=== PATIENT | male | born 1940 | race Caucasian/White ===

== ENCOUNTER 2016-03-29 10:20 | Outpatient (CLI) | payer MEDICARE, OTHER | END 2016-03-29 10:21 | disposition home or self-care (01) | DX: G47.33 Obstructive sleep apnea (adult) (pediatric) (principal) | CPT/HCPCS: 99214; G0463 ==

== ENCOUNTER 2016-06-13 11:47 | Outpatient (CLI) | payer MEDICARE, OTHER | END 2016-06-13 11:48 | disposition home or self-care (01) | DX: Z79.899 Other long term (current) drug therapy (principal); R23.3 Spontaneous ecchymoses ==

== ENCOUNTER 2016-06-25 09:23 | Outpatient (CLI) | payer MEDICARE, OTHER | END 2016-06-25 09:24 | disposition home or self-care (01) | DX: G47.33 Obstructive sleep apnea (adult) (pediatric) (principal) | CPT/HCPCS: 99213; G0463 ==

== ENCOUNTER 2016-09-28 10:20 | Outpatient (CLI) | payer MEDICARE, OTHER | END 2016-09-28 10:21 | disposition home or self-care (01) | LOC: LAB.R 10:20 | PROVIDERS: ATTEND Physician Assistant Medical | DX: T14.90 Injury, unspecified (principal) | CPT/HCPCS: 87070; 87205 ==

== ENCOUNTER 2016-11-15 14:30 | Outpatient (CLI) | payer MEDICARE, OTHER ==
[2016-11-15 19:02] LABS: BASOPHILS # (AUTO) 0.1 10^3/uL (0.0-0.1); BASOPHILS % (AUTO) 0.9 %; EOSINOPHILS # (AUTO) 0.2 10^3/uL (0.0-0.7); EOSINOPHILS % (AUTO) 2.4 %; HCT - HEMATOCRIT 42.6 % (42.0-52.0); HGB - HEMOGLOBIN 14.3 g/dL (14.0-18.0); LYMPHOCYTES # (AUTO) 2.2 10^3/uL (1.5-3.5); LYMPHOCYTES % (AUTO) 27.8 %; MEAN CORPUSCULAR HEMOGLOBIN 32.9 pg (27.0-31.0); MEAN CORPUSCULAR HGB CONC 33.5 g/dL (32.0-36.0); MEAN CORPUSCULAR VOLUME 98.2 fL (80.0-94.0); MEAN PLATELET VOLUME 8.4 fL (7.4-11.4); MONOCYTES # (AUTO) 0.7 10^3/uL (0.0-1.0); MONOCYTES % (AUTO) 8.6 %; NEUTROPHILS # (AUTO) 4.7 10^3/uL (1.5-6.6); NEUTROPHILS % (AUTO) 60.3 %; RED BLOOD COUNT 4.34 10^6/uL (4.70-6.10); RED CELL DISTRIBUTION WIDTH 14.6 % (12.0-15.0); UNCORRECTED WHITE BLOOD COUNT 7.9 x10^3/uL; WHITE BLOOD COUNT 7.9 x10^3/uL (4.8-10.8)
[2016-11-15 19:26] LABS: ALBUMIN/GLOBULIN RATIO 1.3 (1.0-2.2); BILIRUBIN,TOTAL 0.5 mg/dL (0.2-1.0); CALCIUM 9.1 mg/dL (8.5-10.3); CREATININE 1.1 mg/dL (0.6-1.2); POTASSIUM 4.7 mmol/L (3.5-5.0); TOTAL PROTEIN 7.1 g/dL (6.7-8.2)
== END 2016-11-15 14:31 | disposition home or self-care (01) ==
LOC: LAB.WCP 14:30
PROVIDERS: ATTEND Physician Assistant Medical
DX: D64.9 Anemia, unspecified (principal); Z51.81 Encounter for therapeutic drug level monitoring; Z79.899 Other long term (current) drug therapy
CPT/HCPCS: 36415; 80053; 82728; 85025

== ENCOUNTER 2017-01-23 09:30 | Outpatient (CLI) | payer MEDICARE, OTHER ==
[2017-01-23] MEDS ORDERED: ALBUTEROL NEB 2.5 MG/3 ML INH ONE (10:00)
== END 2017-01-23 23:59 | disposition home or self-care (01) ==
LOC: RT 09:30
PROVIDERS: ATTEND Physician Assistant Medical
DX: J44.9 Chronic obstructive pulmonary disease, unspecified (principal); J96.10 Chronic respiratory failure, unspecified whether with hypoxia or hypercapnia
CPT/HCPCS: 94060; J7613

== ENCOUNTER 2017-01-25 12:55 | Outpatient (CLI) | payer MEDICARE, OTHER ==
--- NOTE | 2017-01-25 17:44 | CONSULTATION NOTE ---
Palliative Care Consultation - Referral Referring Provider: Rafia Hartman PA-C Time of Visit: 13:00 [place] [facility] [place] Sources Records reviewed: Previous records reviewed History/Review of Systems obtained from: Patient, Family, Friend Exam limitations: Clinical condition (Patient has marked short-term memory issues and difficulties understanding.) - History of Present Illness Brief History of Present Illness: Thank you, Rafia Hartman PA-C, for asking the palliative care consult service to be involved in the care of your patient. I am asked to provide support regarding symptom management, advanced care planning and monitoring for appropriate transition to hospice. This is a 76 year old man with advanced COPD and increasing SOB with exertion. 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 A CT chest 01/23/17 showed emphysema, but no suspicious pulmonary nodule or mass lesion. Renal cysts were incidentally noted. He does not have a history of hospitalization His functionality has declined over the past year, along with weight loss, and his weight is now stabilized around 162 lbs. His O2 dosage is up to 3L/hr, FEV1 is 22% of predicted, and O2 sats today are 84% on O2 3L, but he denies discomfort, SOB at rest, lightheadedness, orthopnea. I would have to question if my oximeter was accurate, because he was quite comfortable, with no signs of distress. He reports SOB only walking on inclines, but Shayy, who lives with him in a semi-caregiving capacity, and his daughter dispute this. Both of them express frustration that he does not use his oxygen 24/7 as recommended by his PCP, nor does he take the prescribed nebulizer treatment TID. He retorts that he feels fine without the oxygen, and as for the nebulizer, it does not "do anything," it doesn't make him feel any different. He does use albuterol quite regularly, they report he is using 6 per month and actually members of the family are giving him their inhalers because his prescriptions don't cover what he is using. I suspect one reason for his lack of enthusiasm for the nebulizer is having to set it up and then it's time-consuming, vs. two quick puffs of the inhaler. His daughter and Shayy were also concerned that he spends most of his time sitting and watching television. We discussed that his body has been able to compensate pretty well, but considering the lack of perfusion, it's not surprising he is mostly immobile. He is able to do some light housework, such as washing dishes. Lor's concern is he's not getting enough exercise, so we discussed activities he could tolerate and would enjoy doing. He does miss working with his rocks, particularly grinding stones. However, he is still able to do some work with rocks that are already polished, mixing them with wire and creating items his other daughter is able to sell. He and Lor have gone fishing together, and we discussed ways they can continue to enjoy these sorts of activities. He does continue to smoke, which is another stressful issue for his daughter Lor. He has been on Trilogy respiratory therapy, and a study showed he had compliance of the CPAP in Mar-Apr 2016, but it is unclear whether he is still in compliance. He states he does not like it because the water used in the system is too warm. He was in the [employer] for 20 years and also worked in [employer] for 4-5 years. 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 He has been since 2014, and his was on Hospice at end of life, so the family is familiar with it. Medical/Surgical History - Past Medical History Cardiovascular: reports: Hypertension, Atrial fibrillation, Other (R popliteal artery aneurysm. 4x4cm transverse infrarenal aneurysm.) Respiratory: reports: COPD (advanced/end-stage), Sleep apnea (mild (AHI 5.5)), CPAP use, Other (Uses Trilogy respiratory therapy, recommended that it be managed by his continuum of care manager rather than [facility].) Neuro: reports: Other (Short-term memory issues, and cognitive deficit ( deficiency of understanding, illiteracy)) - Substance History Use: Uses substance without health or social issues: Tobacco (Smoked as a teen, quit in 60s (1-2 ppd), quit smoking in 2002, restarted in 2014 and is a current smoker.) Social History - Living Situation Living arrangement: At home Living Situation: With friend(s) (Shayy, former partner of his daughter Lor Hope.) Support System: His daughter, Lor Hope, lives close by. The patient lives at his own place, and has a family friend, Shayy (she is Lor's former partner), who acts as a semi -caregiver. He has another daughter in [place] and a son in [place], [place]. He was in 2015. Medications/Allergies - Medications Home Medications: Ambulatory Orders Medication Instructions Recorded Confirmed Albuterol Sulfate [Proair Hfa 2 puffs INH Q4H PRN 01/25/17 01/25/17 Inhaler] Aspirin [Adult Low Dose Aspirin EC] 81 mg PO 01/25/17 Atorvastatin [Lipitor] 10 mg PO DAILY 01/25/17 01/25/17 Diltiazem HCl [Diltiazem ER] 180 mg PO DAILY 01/25/17 01/25/17 Fluticasone/Salmeterol [Advair 1 inh INH BID 01/25/17 01/25/17 500-50 Diskus] Ipratropium/Albuterol [Combivent 1 puffs INH QID PRN MDD 6 puffs 01/25/17 Respimat] Ipratropium/Albuterol [Duoneb] 3 ml NEB TID 01/25/17 01/25/17 Lisinopril 20 mg PO DAILY 01/25/17 01/25/17 Magnesium Oxide [Magnesium] 500 mg PO DAILY 01/25/17 01/25/17 Multivitamin [Multiple Vitamins] 1 tab PO DAILY 01/25/17 01/25/17 Prednisone [Leonard] 2 mg PO 01/25/17 Review of Systems - Constitutional Constitutional: reports: Weight loss (Family reports previous weight loss but stabilized now around 162 lbs.) - Cardiovascular Cardiovascular: reports: Exertional dyspnea. denies: Chest pain, Lightheadedness, Syncope, Orthopnea - Respiratory Respiratory: reports: SOB with exertion. denies: SOB at rest, Pleuritic pain - Gastrointestinal Gastrointestinal: denies: Constipation, Diarrhea, Nausea, Vomiting - Genitourinary Genitourinary: denies: Dysuria, Frequency, Urgency, Incontinence - Musculoskeletal Musculoskeletal: denies: Muscle pain, Back pain - Neurological Neurological: reports: Memory problems - Psychiatric Psychiatric: denies: Depression, Anxiety Physical Exam - Vital Signs Temperature: 98.4 F Pulse Rate: 61 O2 Saturation: 84 Blood Pressure: 120/68 - Physical Exam General Appearance: positive: No acute distress Eyes Bilateral: positive: EOMI, No lid inflammation, Conjunctivae nml, No scleral icterus ENT: positive: No signs of dehydration Neck: positive: Thyroid nml, No JVD, Trachea midline Cardiovascular: positive: Regular rate & rhythm, No murmur Respiratory: positive: Chest non-tender, No respiratory distress (on 3L O2), Diminished throughout, Wheezes (inspiratory) Skin: negative: No symptoms, Cyanosis Extremities: positive: No pedal edema Neurologic/Psychiatric: positive: Oriented x3, Mood/affect nml Palliative Care - POLST Patient has POLST: Yes POLST Status: DNR, Limited Interventions Pain: No pain Tiredness/Fatigue: None Drowsiness/Sedation: None Nausea: None Depression: None Anxiety: None Dyspnea: Mild (1-3) Anorexia: Mild (1-3) Sleep: Sleeps well Constipation: No Feelings of wellbeing/Perceived Quality of Life: Good Performance Status: Current level of functioning: Able to perform own ADLs, feeds himself, can help with small guest relations officer like dishes. Does not shower very often, but this is a longstanding trait. Ambulatory without walker, and does take off O2 while in the house. May not be compliant with the Trilogy respirator. Is not compliant with albuterol nebulizer, prefers instead to use the inhaler, likely because it is easier and quicker. Palliative Care Performance Status: 50% - Palliative Care Discussion: Who is present: Patient, daughter Lor, friend/rn care transition Shayy, and myself Surrogate decision maker: Daughter/DPMYLENE Hope, mobile [phone]. Shayy, friend who lives with patient, mobile [phone]. Patient/Family understanding of the illness: Patient has a cognitive deficit, apart from his difficulties with short-term memory, which is preventing him from a thorough understanding of his disease. He does insist that he doesn't feel short of breath, and often removes his oxygen cannula. It appears he can handle the lack of extra oxygen while immobile, and even with light activity, such as washing dishes -- at least for a certain amount of time. We discussed keeping his O2 close by so he can access it as needed. I encouraged Lor to learn to accept things she can't change and work with what she can change. If he is not using his oxygen continuously, it's probably because he can tolerate doing so. It will be worthwhile to visit this again at the next visit. Since the patient denies discomfort and dyspnea, or feelings of air hunger, I have not suggested morphine at this time. This should also be revisited at the next meeting. Most important goals: [place] is important to him, and he is missing working with rocks like he used to do. He is no longer driving, and this appears not to be an issue for him, since Shayy is able to drive him. She is working on getting paratransit for him. Right now he's only qualified if the temperature is less than 40 degrees. Patient/family concerns: For his daughter, she has been stressed over his lack of compliance on wearing O2, not using his nebulizer as prescribed, smoking, and sitting around without moving/exercising more. We discussed ways to lessen the daughter's stress around his not always complying with the doctor's orders, and how to increase the activities that he does enjoy and can tolerate. Impression and Recommendations - Palliative Care Impression: This is a 76 year old man with a complex medical history including advanced COPD and increasing SOB upon exertion, along with short-term memory issues and cognitive deficits. He is not compliant on some of his respiratory medications and procedures, nor in the use of oxygen, which is stressful for his daughter., but not for the patient. He and the family could benefit from palliative care followup, with monitoring for increased respiratory symptoms and management of those symptoms, and eventual transition to Hospice when appropriate. Recommendations/Counseling Done: SOB from chronic COPD: Increasing SOB with exertion, but comfortable at rest. Adherence of oxygen use and the nebulizer is an issue for the daughter, but not for the patient. He does overuse albuterol inhaler, and is not using albuterol- ipratropum nebulizer regularly. Continue Advair diskus BID, and prednisone daily. He denies discomfort and dyspnea. Review and next visit, and monitor for increased dyspnea and eventual appropriateness of morphine. Encouraged to quit tobacco. Revisit at each appointment. Advance Care Planning: POLST was filled out and signed earlier in November, DNR and limited interventions. Patient's concern is to maintain his independence as much as possible. An example for him would be to be able to work with his rocks again. His daughter is agreeable to working together on increasing these pleasure activities for him. He does not quite fit the criteria for Hospice currently; he is not actively losing weight, he does not experience SOB or dyspnea at rest. We will monitor his status and transition to Hospice when approriate. Call next week to check if another visit is wanted, and follow up monthly and as needed. Time Spent: 65 minutes with greater than 50% of this done in counseling and coordination of care regarding advanced COPD, advanced care planning, and symptom burden, weighing benefits and burdens of different interventions. Provided anticipatory guidance about disease progress and advanced care planning.
== END 2017-01-25 12:56 | disposition home or self-care (01) ==
LOC: PC 12:55
PROVIDERS: ATTEND Nurse Practitioner
DX: Z51.5 Encounter for palliative care (principal); R06.09 Other forms of dyspnea; J44.9 Chronic obstructive pulmonary disease, unspecified; Z91.14 Patient's other noncompliance with medication regimen; T48.6X6A Underdosing of antiasthmatics, initial encounter; F17.200 Nicotine dependence, unspecified, uncomplicated; J43.9 Emphysema, unspecified; Z99.81 Dependence on supplemental oxygen; Z85.51 Personal history of malignant neoplasm of bladder; I10 Essential (primary) hypertension; I48.91 Unspecified atrial fibrillation; I72.4 Aneurysm of artery of lower extremity; I72.2 Aneurysm of renal artery; Z79.51 Long term (current) use of inhaled steroids; R41.89 Other symptoms and signs involving cognitive functions and awareness; R41.3 Other amnesia; Z66 Do not resuscitate
CPT/HCPCS: 99205

== ENCOUNTER 2017-05-29 11:19 | Outpatient (CLI) | payer MEDICARE, OTHER ==
[2017-05-29 18:44] LABS: BASOPHILS # (AUTO) 0.1 10^3/uL (0.0-0.1); BASOPHILS % (AUTO) 0.9 %; EOSINOPHILS # (AUTO) 0.3 10^3/uL (0.0-0.7); EOSINOPHILS % (AUTO) 3.8 %; HGB - HEMOGLOBIN 13.8 g/dL (14.0-18.0); LYMPHOCYTES # (AUTO) 2.9 10^3/uL (1.5-3.5); LYMPHOCYTES % (AUTO) 36.9 %; MEAN CORPUSCULAR HEMOGLOBIN 31.9 pg (27.0-31.0); MEAN CORPUSCULAR HGB CONC 32.6 g/dL (32.0-36.0); MEAN CORPUSCULAR VOLUME 98.1 fL (80.0-94.0); MONOCYTES # (AUTO) 0.7 10^3/uL (0.0-1.0); MONOCYTES % (AUTO) 9.4 %; NEUTROPHILS # (AUTO) 3.9 10^3/uL (1.5-6.6); PLT - PLATELET COUNT 240 10^3/uL (130-450); RED BLOOD COUNT 4.32 10^6/uL (4.70-6.10); RED CELL DISTRIBUTION WIDTH 13.7 % (12.0-15.0); WHITE BLOOD COUNT 7.9 x10^3/uL (4.8-10.8)
[2017-05-29 19:12] LABS: ALBUMIN/GLOBULIN RATIO 1.3 (1.0-2.2); ALKALINE PHOSPHATASE 84 IU/L (42-121); ALT ALANINE AMINOTRANSFERASE 11 IU/L (10-60); AST ASPARTATE AMINOTRANSFERASE 16 IU/L (10-42); BILIRUBIN,TOTAL 0.6 mg/dL (0.2-1.0); BUN - BLOOD UREA NITROGEN 18 mg/dL (6-20); CALCIUM 8.8 mg/dL (8.5-10.3); CARBON DIOXIDE - CO2 24 mmol/L (21-32); CHLORIDE 104 mmol/L (101-111); CHOL/HDL RATIO 3.1 (<5.0); CHOLESTEROL 117 mg/dL; CREATININE 1.2 mg/dL (0.6-1.2); GFR - MDRD 59 (>89); GLUCOSE 90 mg/dL (70-100); HDL CHOLESTEROL 38 mg/dL; LDL CHOLESTEROL,CALCULATED 64 mg/dL; LDL/HDL RATIO 1.7 (<3.6); SODIUM 137 mmol/L (135-145); VLDL CHOLESTEROL 15 mg/dL
== END 2017-05-29 11:20 | disposition home or self-care (01) ==
LOC: LAB.WCP 11:19
PROVIDERS: ATTEND Family Medicine
DX: Z12.5 Encounter for screening for malignant neoplasm of prostate (principal); I10 Essential (primary) hypertension; J96.10 Chronic respiratory failure, unspecified whether with hypoxia or hypercapnia; R53.83 Other fatigue; D64.9 Anemia, unspecified; I48.0 Paroxysmal atrial fibrillation; J44.1 Chronic obstructive pulmonary disease with (acute) exacerbation; E66.9 Obesity, unspecified
CPT/HCPCS: 36415; 80053; 80061; 84443; 85025; G0103; 83721; 84153

== ENCOUNTER 2018-06-26 08:00 | Outpatient (CLI) | payer MEDICARE, OTHER ==
[2018-06-26 20:48] LABS: BILIRUBIN,URINE NEGATIVE (NEGATIVE); GLUCOSE, URINE (UA) NEGATIVE (NEGATIVE); KETONES,URINE (UA) NEGATIVE (NEGATIVE); LEUKOCYTE ESTERASE, URINE NEGATIVE (NEGATIVE); NITRITE,URINE NEGATIVE (NEGATIVE); OCCULT BLOOD,URINE NEGATIVE (NEGATIVE); PROTEIN,URINE NEGATIVE (NEGATIVE); UROBILINOGEN,URINE 0.2 (NORMAL) E.U./dL (NORMAL)
[2018-06-26 21:20] LABS: BACTERIA,URINE None Seen /HPF (None Seen); CLARITY,URINE CLEAR (CLEAR); RBC,URINE None Seen /HPF (0-5); SQUAMOUS EPITHELIAL CELL,UR NONE SEEN (<= Few)
== END 2018-06-26 23:59 | disposition home or self-care (01) ==
LOC: LAB.R 08:00
PROVIDERS: ATTEND Family Medicine
DX: C67.9 Malignant neoplasm of bladder, unspecified (principal)
CPT/HCPCS: 81001

== ENCOUNTER 2018-06-26 08:00 | Outpatient (CLI) | payer MEDICARE, OTHER ==
[2018-06-26 13:26] LABS: BASOPHILS # (AUTO) 0.1 10^3/uL (0.0-0.1); BASOPHILS % (AUTO) 0.6 %; EOSINOPHILS # (AUTO) 0.2 10^3/uL (0.0-0.7); EOSINOPHILS % (AUTO) 2.3 %; HGB - HEMOGLOBIN 13.6 g/dL (14.0-18.0); LYMPHOCYTES # (AUTO) 1.6 10^3/uL (1.5-3.5); LYMPHOCYTES % (AUTO) 17.6 %; MEAN CORPUSCULAR HEMOGLOBIN 31.4 pg (27.0-31.0); MEAN CORPUSCULAR HGB CONC 32.4 g/dL (32.0-36.0); MEAN PLATELET VOLUME 8.3 fL (7.4-11.4); MONOCYTES % (AUTO) 10.6 %; NEUTROPHILS # (AUTO) 6.4 10^3/uL (1.5-6.6); NEUTROPHILS % (AUTO) 68.9 %; PLT - PLATELET COUNT 258 10^3/uL (130-450); RED BLOOD COUNT 4.31 10^6/uL (4.70-6.10); RED CELL DISTRIBUTION WIDTH 15.2 % (12.0-15.0); WHITE BLOOD COUNT 9.2 x10^3/uL (4.8-10.8)
[2018-06-26 13:38] LABS: ALBUMIN 4.1 g/dL (3.2-5.5); ALBUMIN/GLOBULIN RATIO 1.2 (1.0-2.2); ALKALINE PHOSPHATASE 88 IU/L (42-121); ALT ALANINE AMINOTRANSFERASE 12 IU/L (10-60); AST ASPARTATE AMINOTRANSFERASE 17 IU/L (10-42); BILIRUBIN,TOTAL 0.6 mg/dL (0.2-1.0); BUN - BLOOD UREA NITROGEN 16 mg/dL (6-20); CALCIUM 9.2 mg/dL (8.5-10.3); CARBON DIOXIDE - CO2 27 mmol/L (21-32); CHLORIDE 104 mmol/L (101-111); CHOL/HDL RATIO 2.5 (<5.0); CHOLESTEROL 142 mg/dL; GFR - MDRD 73 (>89); GLUCOSE 84 mg/dL (70-100); HDL CHOLESTEROL 56 mg/dL; LDL CHOLESTEROL,CALCULATED 73 mg/dL; LDL/HDL RATIO 1.3 (<3.6); SODIUM 139 mmol/L (135-145); TOTAL PROTEIN 7.4 g/dL (6.7-8.2); VLDL CHOLESTEROL 13 mg/dL
== END 2018-06-26 23:59 | disposition home or self-care (01) ==
LOC: LAB.WCP 08:00
PROVIDERS: ATTEND Family Medicine
DX: I10 Essential (primary) hypertension (principal); E78.5 Hyperlipidemia, unspecified; D64.9 Anemia, unspecified; C67.9 Malignant neoplasm of bladder, unspecified
CPT/HCPCS: 36415; 80053; 80061; 81001; 83721; 85025

== ENCOUNTER 2019-03-02 08:58 | Outpatient (CLI) | payer MEDICARE, OTHER ==
[2019-03-02 12:39] LABS: BASOPHILS # (AUTO) 0.1 10^3/uL (0.0-0.1); BASOPHILS % (AUTO) 0.6 %; EOSINOPHILS # (AUTO) 0.2 10^3/uL (0.0-0.7); HGB - HEMOGLOBIN 12.3 g/dL (14.0-18.0); LYMPHOCYTES # (AUTO) 1.4 10^3/uL (1.5-3.5); LYMPHOCYTES % (AUTO) 14.6 %; MEAN CORPUSCULAR HGB CONC 31.3 g/dL (32.0-36.0); MEAN CORPUSCULAR VOLUME 102.3 fL (80.0-94.0); MEAN PLATELET VOLUME 10.4 fL (7.4-11.4); MONOCYTES # (AUTO) 0.8 10^3/uL (0.0-1.0); MONOCYTES % (AUTO) 8.6 %; NEUTROPHILS % (AUTO) 73.4 %; PLT - PLATELET COUNT 257 10^3/uL (130-450); RED BLOOD COUNT 3.84 10^6/uL (4.70-6.10); RED CELL DISTRIBUTION WIDTH 14.2 % (12.0-15.0); WHITE BLOOD COUNT 9.5 x10^3/uL (4.8-10.8)
[2019-03-02 13:19] LABS: ALBUMIN 3.6 g/dL (3.2-5.5); ALBUMIN/GLOBULIN RATIO 1.2 (1.0-2.2); ALKALINE PHOSPHATASE 77 IU/L (42-121); ALT ALANINE AMINOTRANSFERASE < 10 IU/L (10-60); AST ASPARTATE AMINOTRANSFERASE 14 IU/L (10-42); BILIRUBIN,TOTAL 0.7 mg/dL (0.2-1.0); BUN - BLOOD UREA NITROGEN 10 mg/dL (6-20); CALCIUM 8.8 mg/dL (8.5-10.3); CARBON DIOXIDE - CO2 28 mmol/L (21-32); CHLORIDE 108 mmol/L (101-111); CREATININE 1.1 mg/dL (0.6-1.2); GFR - MDRD 65 (>89); GLUCOSE 97 mg/dL (70-100); SODIUM 142 mmol/L (135-145); TOTAL PROTEIN 6.7 g/dL (6.7-8.2)
== END 2019-03-02 23:59 | disposition home or self-care (01) ==
LOC: LAB.WCP 08:58
PROVIDERS: ATTEND Physician Assistant Medical
DX: I10 Essential (primary) hypertension (principal)
CPT/HCPCS: 36415; 80053; 85025

== ENCOUNTER 2019-03-13 08:00 | Outpatient (CLI) | payer MEDICARE, OTHER ==
[2019-03-13 18:54] LABS: % IRON SATURATION 15 % (20-50); IRON 50 ug/dL (45-182); TOTAL IRON BINDING CAPACITY 344 ug/dL (250-450); TRANSFERRIN 246 mg/dL (180-329)
== END 2019-03-13 23:59 | disposition home or self-care (01) ==
LOC: LAB.WCP 08:00
PROVIDERS: ATTEND Physician Assistant
DX: D64.9 Anemia, unspecified (principal)
CPT/HCPCS: 36415; 83540; 84466

== ENCOUNTER 2019-08-26 19:12 | Outpatient (CLI) | payer MEDICARE, OTHER ==
--- NOTE | 2019-08-27 09:51 | Ultrasound Report ---
Reason: AORTIC ANEURYSM Procedure Date: 08/26/2019 Accession Number: [id number] / [id number] Procedure: US - Retroperitoneal Limited CPT Code: Final Report FULL RESULT: PROCEDURE: Retroperitoneal Limited INDICATIONS: AORTIC ANEURYSM TECHNIQUE: Real-time scanning was performed of the aorta, with image documentation. Exam is somewhat limited by overlying bowel. COMPARISON: CT abdomen and pelvis 06/15/2015. FINDINGS: Proximal aorta: Obscured. Mid aorta: 2.2 x 2.1 cm. Distal aorta: 5.3 x 4.4 cm, (previously 4 x 3.[address] from 2016). The dilated segment measures approximately 6 cm in length and is infrarenal. Peak systolic velocity of 178 cm/s. Of note there is moderate to severe calcified atherosclerotic plaque on the remote prior CT. Right common iliac artery: 1.2 cm. Left common iliac artery: 2 cm. IMPRESSION: Infrarenal abdominal aortic aneurysm measuring 5.3 cm, increased compared to 2016 were measured 4 cm. Surgery/vascular surgery consultation is recommended. Further evaluation with CTA may be helpful for treatment planning. Reviewed by: Salvador Paul MD on 08/27/2019 9:49 AM PDT Approved by: Salvador Paul MD on 08/27/2019 9:49 AM PDT Station ID: [id number]
== END 2019-08-26 19:13 | disposition home or self-care (01) ==
LOC: DI 19:12
PROVIDERS: ATTEND Family Medicine
DX: I71.4 Abdominal aortic aneurysm, without rupture (principal)
CPT/HCPCS: 76775

== ENCOUNTER 2019-09-04 14:36 | Outpatient (CLI) | payer MEDICARE, OTHER ==
[2019-09-04 18:05] LABS: BASOPHILS # (AUTO) 0.1 10^3/uL (0.0-0.1); BASOPHILS % (AUTO) 0.8 %; EOSINOPHILS # (AUTO) 0.1 10^3/uL (0.0-0.7); EOSINOPHILS % (AUTO) 0.9 %; LYMPHOCYTES # (AUTO) 1.4 10^3/uL (1.5-3.5); MEAN CORPUSCULAR HEMOGLOBIN 31.7 pg (27.0-31.0); MEAN CORPUSCULAR VOLUME 98.9 fL (80.0-94.0); MEAN PLATELET VOLUME 10.2 fL (7.4-11.4); MONOCYTES # (AUTO) 0.6 10^3/uL (0.0-1.0); MONOCYTES % (AUTO) 8.2 %; NEUTROPHILS # (AUTO) 5.5 10^3/uL (1.5-6.6); NEUTROPHILS % (AUTO) 71.6 %; PLT - PLATELET COUNT 296 10^3/uL (130-450); RED BLOOD COUNT 3.79 10^6/uL (4.70-6.10); RED CELL DISTRIBUTION WIDTH 14.7 % (12.0-15.0); WHITE BLOOD COUNT 7.7 x10^3/uL (4.8-10.8)
[2019-09-04 18:22] LABS: ALBUMIN 3.9 g/dL (3.2-5.5); ALBUMIN/GLOBULIN RATIO 1.3 (1.0-2.2); BILIRUBIN,TOTAL 0.4 mg/dL (0.2-1.0); CREATININE 1.1 mg/dL (0.6-1.2)
== END 2019-09-04 23:59 | disposition home or self-care (01) ==
LOC: LAB.WCP 14:36
PROVIDERS: ATTEND Family Medicine
DX: F02.80 Dementia in other diseases classified elsewhere, unspecified severity, without behavioral disturbance, psychotic disturbance, mood disturbance, and anxiety (principal); I10 Essential (primary) hypertension
CPT/HCPCS: 36415; 80053; 81599; 84443; 85025; 86592

== ENCOUNTER 2019-09-13 09:59 | Outpatient (CLI) | payer MEDICARE, OTHER | END 2019-09-13 10:00 | disposition EMS.NT | LOC: EMS 09:59 | PROVIDERS: ATTEND Surgery | DX: R06.00 Dyspnea, unspecified (principal) ==

== ENCOUNTER 2019-10-07 12:15 | Outpatient (CLI) | payer MEDICARE, OTHER | END 2019-10-07 23:59 | disposition home or self-care (01) | LOC: LAB.R 12:15 | PROVIDERS: ATTEND Family Medicine | DX: Z20.828 Contact with and (suspected) exposure to other viral communicable diseases (principal) ==

== ENCOUNTER 2019-12-24 12:25 | Outpatient (CLI) | payer MEDICARE, OTHER | END 2019-12-24 12:26 | disposition short-term general hospital (02) | LOC: EMS 12:25 | PROVIDERS: ATTEND Surgery | DX: R07.1 Chest pain on breathing (principal); R05 Cough; R06.9 Unspecified abnormalities of breathing | CPT/HCPCS: A0425; A0427 ==

== ENCOUNTER 2020-06-23 16:43 | Outpatient (CLI) | payer MEDICARE, OTHER | END 2020-06-23 16:44 | disposition short-term general hospital (02) | LOC: EMS 16:43 | DX: R05 Cough (principal); R06.09 Other forms of dyspnea | CPT/HCPCS: A0425; A0429; A0888 ==

== ENCOUNTER 2020-07-15 15:39 | Outpatient (CLI) | payer MEDICARE, OTHER | END 2020-07-15 15:40 | disposition short-term general hospital (02) | LOC: EMS 15:39 | DX: R63.5 Abnormal weight gain (principal) | CPT/HCPCS: A0425; A0429 ==

== ENCOUNTER 2020-09-14 10:53 | Outpatient (CLI) | payer MEDICARE, OTHER | END 2020-09-14 10:54 | disposition short-term general hospital (02) | LOC: EMS 10:53 | DX: R06.00 Dyspnea, unspecified (principal) | CPT/HCPCS: A0425; A0429 ==

== ENCOUNTER 2020-10-08 12:28 | Outpatient (CLI) | payer MEDICARE, OTHER | END 2020-10-08 12:29 | disposition short-term general hospital (02) | LOC: EMS 12:28 | DX: R04.2 Hemoptysis (principal); R06.09 Other forms of dyspnea | CPT/HCPCS: A0425; A0429 ==

== ENCOUNTER 2021-02-20 08:00 | Outpatient (CLI) | payer MEDICARE, OTHER | END 2021-02-20 23:59 | LOC: LAB.R 08:00 | PROVIDERS: ATTEND Family Medicine | DX: U07.1 COVID-19 (principal) ==

== ENCOUNTER 2021-02-21 12:52 | Outpatient (CLI) | payer MEDICARE, OTHER | END 2021-02-21 12:53 | LOC: EMS 12:52 | PROVIDERS: ATTEND Family Medicine | DX: Z51.5 Encounter for palliative care (principal) | CPT/HCPCS: A0425; A0428 ==

== ENCOUNTER 2021-02-25 14:10 | Outpatient (CLI) | payer MEDICARE, OTHER | END 2021-02-25 14:11 | disposition home or self-care (01) | LOC: EMS 14:10 | PROVIDERS: ATTEND Family Medicine | DX: Z51.5 Encounter for palliative care (principal) | CPT/HCPCS: A0425; A0428 ==

== ENCOUNTER 2021-05-13 11:20 | Outpatient (CLI) | payer MEDICARE, OTHER | END 2021-05-13 23:59 | disposition home or self-care (01) | LOC: LAB.R 11:20 | PROVIDERS: ATTEND Family Medicine | DX: U07.1 COVID-19 (principal) ==

== ENCOUNTER 2021-05-28 08:00 | Outpatient (CLI) | payer MEDICARE, OTHER | END 2021-05-28 23:59 | LOC: LAB.R 08:00 | DX: U07.1 COVID-19 (principal) | CPT/HCPCS: 86769 ==